=== PATIENT | female | born 1945 | race Caucasian/White ===

== ENCOUNTER → 2017-07-21 | Day surgery (SDC) | payer OTHER ==
[~2017-07-21] VITALS: Ht 165.1 cm; Wt 68.9 kg
[~2017-07-21] MED LIST: CIPRO500 M1 PO; FLAGYL500 MG PO; LOSARTAN POTASS25 M1 PO
--- NOTE | 2017-07-21 19:12 | Operative Report ---
Operative/Inv Procedure Report Surgery Date: 07/21/17 Name of Procedure: Laparoscopic cholecystectomy Pre-Operative Diagnosis: Acute cholecystitis Post-Operative Diagnosis: Same fibrosing Estimated Blood Loss: less than 50ml Surgeon/Outside Maintenance Worker: Kayla YI,MIRANDA Whyte Anesthesia: general endotracheal tube Operative/Procedure Note Note: Patient was positioned supine. After successful induction of general anesthesia, the patient's abdomen was clipped, prepped and draped in the usual sterile fashion. Local anesthetic was injected at the top of the umbilicus and then a curved horizontal incision little over a centimeter was made there with a 15 blade and then deepened to the midline fascia which was incised vertically a little over a centimeter. Both sides were secured with 0 Vicryl stay sutures and then the thin peritoneal layer was entered, 10 mm Gil trocar inserted obliquely to the right, and the gas was turned on to 15 mm. After insufflation and repositioning to reverse Trendelenburg, 3 more dissecting 5 mm trochars were placed in the right subcostal area, first lateral, then mid-subcostal, then subxiphoid. The gallbladder was covered with omentum we had to peel that down gently and it was also distended. Decompress it with a large-bore needle there was white bile after all this then the fundus was grasped from the lateral port and retracted up over the edge of the liver and then we dissected out the area of the triangle of Calot while retracting the infundibulum caudally / laterally with one of the larger clamps because the whole area was fibrosed. First the cystic duct was identified, isolated at the neck, clipped 3 times, divided after the second clip and then in similar fashion the cystic artery was identified medially, dissected and divided. Then the gallbladder was from the liver bed using cautery then lowered into an Endobag and removed through the umbilical incision. There was one bleeding point in the liver bed which was controlled with the cautery turned up to 40 but I added some topical procoagulant as well. The instruments and then the trochars were removed letting the gas escape. The fascial incision was closed with a figure 8 Vicryl then all 4 skin incisions were closed with interrupted subcuticular 4-0 Monocryl, followed by Mastisol Steri-Strips and Bandaids. Estimated blood loss was minimal, lap and sponge counts were correct, wound expectancy was clean- contaminated, IV fluids crystalloid, complications none, patient tolerated the procedure well and was returned to the recovery room in satisfactory condition.
== END ==
LOC: STS 01:34
DX: K81.1 Chronic cholecystitis (principal); I10 Essential (primary) hypertension; I70.90 Unspecified atherosclerosis; F17.200 Nicotine dependence, unspecified, uncomplicated
CPT/HCPCS: 88304; J2250